=== PATIENT | female | born 1995 | race Caucasian/White ===

== ENCOUNTER → 2017-06-16 | Outpatient (CLI) | payer OTHER ==
[2017-06-16 16:38] LABS: Specimen Source CERVIX
[2017-06-17 14:22] LABS: Source Cervix
== END | disposition home or self-care (01) ==
LOC: OLS 16:37
PROVIDERS: Nurse Practitioner Women's Health
DX: Z11.3 Encounter for screening for infections with a predominantly sexual mode of transmission (principal)
CPT/HCPCS: 87491; 87591

== ENCOUNTER → 2018-07-29 | Outpatient (CLI) | payer OTHER, BC ==
[2018-08-02 15:07] LABS: HPV 16 Negative (Negative); HPV 18 Negative (Negative); HPV OTHER HR TYPES Negative (Negative)
== END | disposition home or self-care (01) ==
LOC: LAB SHORT 15:33 → LAB 15:33
PROVIDERS: Nurse Practitioner Women's Health
DX: Z12.4 Encounter for screening for malignant neoplasm of cervix (principal); Z91.89 Other specified personal risk factors, not elsewhere classified
CPT/HCPCS: 87624; G0123

== ENCOUNTER → 2018-07-29 | Outpatient (CLI) | payer OTHER, BC ==
[2018-07-30 22:09] LABS: CHLAMYDIA TRACHOMATIS, NAA Negative (Negative); NEISSERIA GONORRHOEAE, NAA Negative (Negative)
== END | disposition home or self-care (01) ==
LOC: LAB SHORT 15:33 → LAB 15:33
PROVIDERS: Nurse Practitioner Women's Health
DX: Z11.3 Encounter for screening for infections with a predominantly sexual mode of transmission (principal)
CPT/HCPCS: 87491; 87591

== ENCOUNTER 2018-11-22 11:14 | Day surgery (SDC) | payer OTHER, BC ==
[~2018-11-22] VITALS: Ht 165.1 cm; Wt 109.0 kg
[~2018-11-22 11:14] MED LIST: PHILITH PO
== END 2018-11-22 13:38 | disposition home or self-care (01) ==
LOC: ORSCSDS 11:14
PROVIDERS: Internal Medicine Gastroenterology
PROC: 0DB68ZX Excision of Stomach, Via Natural or Artificial Opening Endoscopic, Diagnostic (ICD-10-PCS; principal; 2018-11-22 12:30)
PROC: 0DBE8ZX Excision of Large Intestine, Via Natural or Artificial Opening Endoscopic, Diagnostic (ICD-10-PCS; principal; 2018-11-22 12:30)
PROC: 0DB98ZX Excision of Duodenum, Via Natural or Artificial Opening Endoscopic, Diagnostic (ICD-10-PCS; principal; 2018-11-22 12:30)
DX: R10.13 Epigastric pain (principal); R10.9 Unspecified abdominal pain; R19.7 Diarrhea, unspecified; R19.4 Change in bowel habit; E66.01 Morbid (severe) obesity due to excess calories; Z68.41 Body mass index [BMI] 40.0-44.9, adult
CPT/HCPCS: 88305; 88342; J2250; J2405; J2704; J7120

== ENCOUNTER → 2025-02-13 | Outpatient (CLI) | payer OTHER | LOC: LAB 09:07 → LAB SHORT 09:07 | DX: O09.93 Supervision of high risk pregnancy, unspecified, third trimester (principal) | CPT/HCPCS: 87081 ==

== ENCOUNTER 2025-03-13 07:05 | Inpatient (IN) | payer OTHER ==
[2025-03-13] VITALS (15 sets, daily range): BP systolic 111–135; BP diastolic 58–79
[~2025-03-13] VITALS: Ht 162.6 cm; Wt 98.4 kg
[2025-03-13] MEDS ORDERED: OXYTOCIN/RINGER'S LACTATE 500 ML IV PRN (07:30)
[2025-03-13] MEDS ORDERED: Carboprost Tromethamine 250 MCG/ML 1ML Amp IM PRN ×2 (07:30→20:45)
[2025-03-13] MEDS ORDERED: Oxytocin 10 Unit / ML Vial IM PRN (07:30)
[2025-03-13] MEDS ORDERED: Methylergonovine Maleate 0.2MG / ML 1ML Amp IM PRN ×2 (07:30→20:35)
[2025-03-13] MEDS ORDERED: Tranexamic Acid 100 ML IV SCH (07:30)
[2025-03-13] MEDS ORDERED: Ondansetron HCl 2 MG / ML 2ML Vial IV PRN (07:30)
[2025-03-13] MEDS ORDERED: OXYTOCIN/RINGER'S LACTATE 500 ML IV SCH ×2 (08:00→20:45)
[2025-03-13 08:13] LABS: BASOPHILS ABSOLUTE AUTO 0.03 K/mm3 (0.00-0.23); BASOPHILS PERCENT AUTO 0 % (0-2); EOSINOPHILS ABSOLUTE AUTO 0.04 K/mm3 (0.00-0.68); EOSINOPHILS PERCENT AUTO 0 % (0-6); Hematocrit 34.9 % (33.0-51.0); Hemoglobin 11.9 g/dL (11.5-16.0); IMMATURE GRAN ABSOLUTE AUTO 0.09 K/mm3 (0.00-0.10); IMMATURE GRAN PERCENT AUTO 1 % (0-1); LYMPHOCYTES ABSOLUTE AUTO 2.20 K/mm3 (0.84-5.20); LYMPHOCYTES PERCENT AUTO 24 % (21-46); MONOCYTES ABSOLUTE AUTO 0.74 K/mm3 (0.16-1.47); MONOCYTES PERCENT AUTO 8 % (4-13); Mean Corpuscular HGB Conc 34.1 g/dL (31.5-36.5); Mean Corpuscular Volume 81 fL (80-100); NEUTROPHILS ABSOLUTE AUTO 6.26 K/mm3 (1.96-9.15); NEUTROPHILS PERCENT AUTO 67 % (41-73); NRBC ABSOLUTE 0.00 K/mm3 (0.00-0.02); NRBC Auto 0.0 /100 WBC (0.0-0.2); Platelet Count 186 K/mm3 (150-400); RDW Coefficient Variation 13.1 % (11.7-14.2); RDW Standard Deviation 38.4 fL (35.1-46.3)
[2025-03-13] MEDS ORDERED: Ketorolac Tromethamine 30mg Vial IV PRN (20:40)
[2025-03-13] MEDS ORDERED: FLU VACC TS2025-26(6MOS UP)/PF 45 MCG/0.5 ML SYRINGE IM SCH (20:40)
[2025-03-13] MEDS ORDERED: Witch Hazel/Glycerin PADS TOP PRN (20:40)
[2025-03-13] MEDS ORDERED: Benzocaine Topical Anesthetic Spray 60GM TOP PRN (20:45)
[2025-03-14 07:00] VITALS: BP 126/78
[2025-03-14 07:24] VITALS: BP 127/72
--- NOTE | 2025-03-14 08:03 | NUR ---
0730: PT IN BED, ATTEMPTING TO SLEEP. PT HAS JUST R/T ROOM FROM BEING UP IN THE NURSERY WITH BABY. DENIES PAIN. NO QUESTIONS OR CONCERNS. PT VERY FRIENDLY AND REQUESTS TO TAKE A NAP THIS MORNING.
[2025-03-14] MEDS ORDERED: Prenatal Vit/FE Fumarate/FA 1 Tab PO SCH (09:00)
[2025-03-14] MEDS ORDERED: FLU VACC TS2025-26(6MOS UP)/PF 45 MCG/0.5 ML SYRINGE IM SCH (10:20)
[2025-03-14 13:13] VITALS: BP 121/68
[2025-03-14] MEDS ORDERED: IBUP800 PO (17:47)
--- NOTE | 2025-03-14 18:15 | NUR ---
Printed d/c instructions given for pt to review. Paternity papers, EPDS and healthy families referral explained. Pt is currently in nursery feeding nb and will work on paperwork when back to room.
[2025-03-14 20:07] VITALS: BP 130/73
== END 2025-03-14 21:05 | disposition home or self-care (01) | DRG 807 ==
LOC: OBS 07:05 → BC 07:13
PROVIDERS: ADMIT Advanced Practice Midwife
PROC: 3E033VJ Introduction of Other Hormone into Peripheral Vein, Percutaneous Approach (ICD-10-PCS; principal; 2025-03-13)
PROC: 10E0XZZ Delivery of Products of Conception, External Approach (ICD-10-PCS; principal; 2025-03-13)
PROC: 0KQM0ZZ Repair Perineum Muscle, Open Approach (ICD-10-PCS; principal; 2025-03-13)
DX: O48.0 Post-term pregnancy (principal); Z37.0 Single live birth; O99.214 Obesity complicating childbirth; O70.1 Second degree perineal laceration during delivery; Z3A.40 40 weeks gestation of pregnancy
CPT/HCPCS: 36415; 85025; 86850; 86900; 86901; A9270; J1885; J2590; J7120